=== PATIENT | female | born 1990 | race Caucasian/White ===

== ENCOUNTER 2023-07-16 10:33 | Emergency (ER) | payer MEDICAID, SELFPAY ==
[2023-07-16 10:36] VITALS: BP 129/83; PULSE 104; RESP 18; TEMP 37; O2SAT 97
--- NOTE | 2023-07-16 11:28 | ED.GENADULT ---
HPI - General Adult General Date Seen: 07/16/23 Chief complaint: Abdominal Pain Stated complaint: Detox Time Seen by Provider: 07/16/23 10:56 Source: patient Mode of arrival: ambulatory Limitations: no limitations History of Present Illness HPI narrative: Patient is a 33-year-old female presenting for alcohol withdrawal. Patient states she is a chronic alcoholic with liver failure. She was abstinent from alcohol for 3 months but went on a binge 3 days ago and last drank alcohol yesterday. She states she feels like she is going through alcohol withdrawals which she has done in the past. She comes here to get detoxed. She states she does not want to go to a detox center and was hoping she could be detoxed in our hospital. She states previously when a detox her at [place] they gave her Dilaudid and nausea medicine to help with the detox. Denies hallucinations at this time. Has not had any seizures. She feels like her heart is racing. Related Data Home Medications Medication Instructions Recorded Confirmed acetaminophen 325 mg tablet 650 mg PO Q6H PRN moderate pain 07/16/23 07/16/23 aluminum-mag hydroxide-simethicone ml PO 07/16/23 200 mg-200 mg-20 mg/5 mL oral susp (Antacid-Antigas) atomoxetine 40 mg capsule 40 mg PO DAILY 07/16/23 07/16/23 atomoxetine 60 mg capsule 60 mg PO QAM 07/16/23 07/16/23 benzoyl peroxide 5 % topical topical QA 07/16/23 cleanser clonidine HCl 0.1 mg tablet mg PO 07/16/23 doxycycline hyclate 100 mg capsule 100 mg PO DAILY 07/16/23 07/16/23 escitalopram oxalate 10 mg tablet 10 mg PO DAILY 07/16/23 07/16/23 folic acid 1 mg tablet 1 mg PO QAM 07/16/23 07/16/23 gabapentin 800 mg tablet mg PO 07/16/23 hydroxyzine HCl 25 mg tablet mg PO 07/16/23 hydroxyzine pamoate 25 mg capsule mg PO 07/16/23 lactulose 10 gram oral packet 0 g PO 3XD 07/16/23 07/16/23 (Kristalose) melatonin 3 mg tablet 3 mg PO QPM 07/16/23 07/16/23 mirtazapine 15 mg tablet 15 mg PO QPM 07/16/23 07/16/23 multivitamin-ferrous 1 tab PO DAILY 07/16/23 07/16/23 fumarate-folic acid 18 mg-400 mcg tablet (Certavite-Antioxidant) naltrexone 50 mg tablet 50 mg PO DAILY 07/16/23 07/16/23 ondansetron 4 mg disintegrating 4 mg PO Q8H PRN 07/16/23 07/16/23 tablet pantoprazole 40 mg tablet,delayed 40 mg PO BID 07/16/23 07/16/23 release propranolol 10 mg tablet 10 mg PO DAILY 07/16/23 07/16/23 thiamine HCl (vitamin B1) 100 mg 100 mg PO DAILY 07/16/23 07/16/23 tablet trazodone 100 mg tablet 100 mg PO QPM 07/16/23 07/16/23 ursodiol 300 mg capsule 300 mg PO BID 07/16/23 07/16/23 Previous Rx's Medication Instructions Recorded chlordiazepoxide HCl 25 mg capsule See Rx Instructions .Route 07/16/23 .COMPLEX PRN #15 caps ondansetron 4 mg disintegrating 4 mg PO Q6H #20 tabs 07/16/23 tablet Allergies Allergy/AdvReac Type Severity Reaction Status Date / Time oxycodone Allergy Mild itchy Uncoded 07/16/23 10:43 accompast Allergy Unknown Uncoded 07/16/23 10:43 hydrochloriquin Allergy Unknown Uncoded 07/16/23 10:43 Review of Systems Status of ROS: Reports: 10 or more systems reviewed and unremarkable except as noted in History and below Exam Narrative: Exam Narrative: Const: Well-nourished, Well-developed, in mild distress Eyes: PERRL, no conjunctival injection, and symmetrical lids HENT: Atraumatic external nose and ears. Moist mucous membranes. Neck: Symmetric, trachea midline, No thyromegaly. CVS: Tachycardic, No murmurs or gallops. Peripheral pulses 2+ and equal in all extremities RESP: Unlabored respiratory effort. Clear to auscultation bilaterally. GI: Nontender/Nondistended, No rebound or guarding. MSK:Extremities w/o deformity, Normal Active ROM Skin: Warm, Dry. No rashes or lesions. Neuro: Normal Muscle tone, No focal neurological deficits. Psych: Awake, Alert, & Oriented x3. Appropriate mood and affect. Const: Vital Signs, click to edit/add: Vital Signs - 24 hr 07/16/23 10:36 Temperature 98.6 F Pulse Rate [Pulse Oximeter] 104 H Respiratory Rate 18 Blood Pressure [Ri ght Upper Arm] 129/83 Pulse Oximetry 97 Oxygen Delivery Me thod Room Air Course Vital Signs Vital signs: Initial Vital Signs Temperature 98.6 F 07/16/23 10:36 Temperature Source Temporal Artery Scan 07/16/23 10:36 Pulse Rate 104 H 07/16/23 10:36 Respiratory Rate 18 07/16/23 10:36 Blood Pressure 129/83 07/16/23 10:36 Blood Pressure Mean 98 07/16/23 10:36 Blood Pressure Position Sitting 07/16/23 10:36 Pulse Oximetry 97 07/16/23 10:36 Oxygen Delivery Method Room Air 07/16/23 10:36 Vital Signs Temperature 98.6 F 07/16/23 10:36 Pulse Rate 104 H 07/16/23 10:36 Respiratory Rate 18 07/16/23 10:36 Blood Pressure 129/83 07/16/23 10:36 Pulse Oximetry 97 07/16/23 10:36 Oxygen Delivery Method Room Air 07/16/23 10:36 Temperature 98.6 F 07/16/23 10:36 Pulse Rate 104 H 07/16/23 10:36 Respiratory Rate 18 07/16/23 10:36 Blood Pressure 129/83 07/16/23 10:36 Pulse Oximetry 97 07/16/23 10:36 Oxygen Delivery Method Room Air 07/16/23 10:36 Medical Decision Making MDM Narrative Medical decision making narrative: Patient is a 33 female presenting to the emergency department for detox. She does not appear to be in DTs at this time. I explained to her that she will have to be transferred to a detox center as we cannot detox her at our hospital. At this point she said she would rather just go home and does not want to be transferred. I explained to her that we do not detox at our hospital and Dilaudid is not appropriate medication for alcohol detox. She appears to be able to make her own decisions is not having any altered mental status, DTs, seizures. She does not want to stay to be transferred to another hospital for detox so at this time I will let her leave as I cannot force her to stay. I will give her prescription for Zofran and Librium. She is agreeable to this plan. Discharge Plan Discharge Clinical Impression: Alcohol withdrawal Qualifiers: Complication of substance-induced condition: uncomplicated Qualified Code(s): F10.930 - Alcohol use, unspecified with withdrawal, uncomplicated Patient Disposition: Home, Self-Care Condition: Stable Instructions: Alcohol Withdrawal (DC) Additional Instructions: Use the Librium and Zofran as directed. Return to emergency department for new or worsening symptoms Prescriptions: New ondansetron 4 mg tablet,disintegrating 4 mg PO Q6H Qty: 20 0RF chlordiazepoxide HCl 25 mg capsule See Rx Instructions .ROUTE .COMPLEX PRNQty: 15 0RF Rx Instructions: 50 mg q.6 hours for 4 doses day 1 25 mg q.6 hours for 4 doses day 2 25 mg q.12 hours for 2 doses day 3 25 mg at night day 4 No Action clonidine HCl 0.1 mg tablet PO acetaminophen 325 mg tablet 650 mg PO Q6H PRN (Reason: moderate pain) doxycycline hyclate 100 mg capsule 100 mg PO DAILY naltrexone 50 mg tablet 50 mg PO DAILY thiamine HCl (vitamin B1) 100 mg tablet 100 mg PO DAILY melatonin 3 mg tablet 3 mg PO QPM propranolol 10 mg tablet 10 mg PO DAILY gabapentin 800 mg tablet PO trazodone 100 mg tablet 100 mg PO QPM lactulose [Kristalose] 10 gram packet 0 g PO 3XD pantoprazole 40 mg tablet,delayed release (DR/EC) 40 mg PO BID ursodiol 300 mg capsule 300 mg PO BID folic acid 1 mg tablet 1 mg PO QAM hydroxyzine HCl 25 mg tablet PO mirtazapine 15 mg tablet 15 mg PO QPM alum-mag hydroxide-simeth [Antacid-Antigas] 200-200-20 mg/5 mL suspension PO benzoyl peroxide 5 % cleanser topical QAM ondansetron 4 mg tablet,disintegrating 4 mg PO Q8H PRN hydroxyzine pamoate 25 mg capsule PO escitalopram oxalate 10 mg tablet 10 mg PO DAILY atomoxetine 40 mg capsule 40 mg PO DAILY Patient Comments: takes the 60 mg atomoxetine 60 mg capsule 60 mg PO QAM Certavite-Antioxidant 18-400 mg-mcg tablet 1 tab PO DAILY Stand Alone Forms: [facility] Info Instructions
--- NOTE | 2023-07-16 11:42 | ED.NURSE ---
Unable to completely assess d/t MD discharging pt before being evaluated.
== END 2023-07-16 11:47 | disposition home or self-care (01) ==
LOC: ED 11:45
PROVIDERS: Emergency Provider Student in an Organized Health Care Education/Training Program
DX: F10.930 Alcohol use, unspecified with withdrawal, uncomplicated (principal)
CPT/HCPCS: 99282; 99283